=== PATIENT | male | born 1990 | race Two or more races ===

== ENCOUNTER 2024-09-10 09:51 | Emergency (ER) | payer MEDICAID, OTHER ==
[~2024-09-10] VITALS: Ht 177.8 cm; Wt 72.6 kg
[2024-09-10 09:58] VITALS: BP 115/67; TEMP 98.2; O2SAT 99
[2024-09-10] MEDS ORDERED: LIDO30AD10 TP (10:24)
[2024-09-10] MEDS ORDERED: IBUP-1955 PO (10:24)
[2024-09-10] MEDS ORDERED: CYCL5TAB PO (10:24)
== END 2024-09-10 10:47 | disposition home or self-care (01) ==
LOC: ER 10:05
DX: S16.1XXA Strain of muscle, fascia and tendon at neck level, initial encounter (principal); S29.012A Strain of muscle and tendon of back wall of thorax, initial encounter; V49.09XA Driver injured in collision with other motor vehicles in nontraffic accident, initial encounter; Y93.89 Activity, other specified; Y92.410 Unspecified street and highway as the place of occurrence of the external cause; Y99.9 Unspecified external cause status